=== PATIENT | male | born 1980 | race Caucasian/White ===

== ENCOUNTER 2018-07-06 09:58 | Inpatient (IN) | payer OTHER ==
[~2018-07-06] VITALS: Ht 175.3 cm; Wt 79.4 kg
[2018-07-06] MEDS ORDERED: RANI-551 PO (10:05)
[2018-07-06] MEDS ORDERED: METF-440 PO (10:05)
[2018-07-06 10:40] LABS: BASOPHILS % (AUTO) 0.7 % (0.0-2.0); EOSINOPHILS # (AUTO) 0.1 K/uL (0.0-0.7); EOSINOPHILS % (AUTO) 1.8 % (0.0-7.0); HEMATOCRIT 41.1 % (36.7-47.1); HEMOGLOBIN 14.7 g/dL (12.5-16.3); LYMPHOCYTES # (AUTO) 2.4 K/uL (20.0-40.0); LYMPHOCYTES % (AUTO) 38.7 % (20.5-51.5); MEAN CORPUSCULAR HEMOGLOBIN 30.4 uug (23.8-33.4); MEAN CORPUSCULAR HGB CONC 36 g/dL (32.5-36.3); MEAN CORPUSCULAR VOLUME 84.8 fL (73.0-96.2); MONOCYTES # (AUTO) 0.6 K/uL (2.0-10.0); MONOCYTES % (AUTO) 10.1 % (0.0-11.0); NEUTROPHILS % (AUTO) 48.7 % (38.5-71.5); PLATELET COUNT (AUTO) 282 K/uL (152-348); RED BLOOD CELL COUNT(AUTO) 4.85 MIL/uL (4.06-5.63); WHITE BLOOD COUNT (AUTO) 6.1 K/uL (3.6-10.2)
[2018-07-06 10:47] LABS: CREATININE 0.7 mg/dL (0.6-1.3); POTASSIUM 3.7 mmol/L (3.5-5.1)
[2018-07-06 11:01] LABS: *BILIRUBIN,URIN NEGATIVE (NEGATIVE); *BLOOD, URINE NEGATIVE (NEGATIVE); *CLARITY,URINE CLEAR (CLEAR); *COLOR,URINE LIGHT YELLOW (YELLOW); *KETONES,URINE 1+ (NEGATIVE); *PROTEIN,URINE NEGATIVE (NEGATIVE); *UROBILINOGEN,URINE 0.2 E.U./dl (NORMAL); LEUKOCYTE ESTERASE ,URINE NEGATIVE (NEGATIVE); NITRITE, URINE NEGATIVE (NEGATIVE); UGLUCOSE 2+ (NEGATIVE)
[2018-07-06 11:05] LABS: BILIRUBIN,DIRECT 0.1 mg/dL (0.0-0.2); BILIRUBIN,TOTAL 0.5 mg/dL (0.2-1.0); TOTAL PROTEIN, SERUM 7.5 g/dL (6.4-8.2)
[2018-07-06 11:13] LABS: BACTERIA,URINE NONE SEEN /HPF (NONE SEEN); RBC,URINE NONE SEEN /HPF (0-3); SQUAMOUS EPITHELIAL CELL,UR NONE SEEN /HPF (NONE SEEN); WBC,URINE NONE SEEN /HPF (0-3)
[2018-07-06] MEDS ORDERED: INSULIN REGULAR, HUMAN 300 UNIT/3 ML VIAL SQ ONE (11:30)
[2018-07-06] MEDS ORDERED: INSULIN REGULAR, HUMAN 300 UNIT/3 ML VIAL ONE (11:34)
--- NOTE | 2018-07-06 12:00 | NUR ---
[facility] [place]. PT EATING WITH GOOD APETITE
[2018-07-06] MEDS ORDERED: KETOROLAC TROMETHAMINE 30 MG INJ ONE (12:22)
[2018-07-06] MEDS ORDERED: KETOROLAC TROMETHAMINE 30 MG INJ IVP ONE (12:30)
--- NOTE | 2018-07-06 12:34 | NUR ---
pt transfered to floor in stable condition.
[2018-07-06 12:49] VITALS: BP 108/76
--- NOTE | 2018-07-06 13:36 | NUR ---
37 YEAR OLD MALE ADMITTED TO ROOM 225 FOR SYNCOPE ,PT IS AXOX4 .V/S ARE STABLE ,CALL LIGHT WITH IN REACH.MD CALLED FOR ADMISSION ORDERS
[2018-07-06] MEDS ORDERED: HYDROCODONE/APAP 5-325MG TABLET PO PRN (15:00)
[2018-07-06 15:50] VITALS: BP 107/74
[2018-07-06] MEDS ORDERED: ZOLPIDEM 5 MG TABLET PO PRN (16:45)
[2018-07-06] MEDS ORDERED: ONDANSETRON 4 MG/2 ML VIAL IV PRN (16:45)
[2018-07-06] MEDS ORDERED: ACETAMINOPHEN 325 MG TABLET PO PRN (16:45)
[2018-07-06] MEDS ORDERED: MAGNESIUM HYDROXIDE 30 ML LIQUID UDC PO PRN (16:45)
[2018-07-06] MEDS ORDERED: DEXTROSE 50% 50 ML DISP.SYRIN IV PRN (16:45)
[2018-07-06] MEDS: glipiZIDE 10 MG TABLET PO SCH (17:35)
[2018-07-06] MEDS: METFORMIN HCL 500 MG TABLET PO SCH (17:35)
[2018-07-06 20:00] VITALS: BP 118/79
[2018-07-06] MEDS: ALPRAZOLAM 0.5 MG TABLET PO PRN (20:00)
--- NOTE | 2018-07-06 20:00 | NUR ---
RECEIVED PATIENT AWAKE IN BED WITH AT BEDSIDE. PATIENT IS A/O X4. ON TELE SR. VS WNL. H/L INTACT AND PATENT. DENIES PAIN AT THIS TIME, CALL LIGHT IN REACH. ALL NEEDS ATTENDED. WILL CONTINUE TO MONITOR.
[2018-07-06] MEDS: BLOOD SUGAR DIAGNOSTIC 1 EACH STRIP VI SCH (20:05)
[2018-07-06] MEDS: INSULIN REGULAR, HUMAN 300 UNIT/3 ML VIAL SQ PRN (20:06)
[2018-07-06] MEDS: MORPHINE SULFATE 2 MG/1 ML DISP.SYRIN IV PRN (20:46)
[2018-07-06 23:27] VITALS: BP 114/78
[2018-07-07 04:00] VITALS: BP 123/73
[2018-07-07 05:57] LABS: BASOPHILS % (AUTO) 0.6 % (0.0-2.0); EOSINOPHILS # (AUTO) 0.1 K/uL (0.0-0.7); EOSINOPHILS % (AUTO) 2.1 % (0.0-7.0); HEMATOCRIT 37.5 % (36.7-47.1); HEMOGLOBIN 13.1 g/dL (12.5-16.3); LYMPHOCYTES # (AUTO) 2.4 K/uL (20.0-40.0); LYMPHOCYTES % (AUTO) 37.2 % (20.5-51.5); MEAN CORPUSCULAR HEMOGLOBIN 29.3 uug (23.8-33.4); MEAN CORPUSCULAR HGB CONC 35 g/dL (32.5-36.3); MEAN CORPUSCULAR VOLUME 83.8 fL (73.0-96.2); MONOCYTES # (AUTO) 0.5 K/uL (2.0-10.0); MONOCYTES % (AUTO) 8.7 % (0.0-11.0); NEUTROPHILS # (AUTO) 3.3 K/uL (1.8-8.9); NEUTROPHILS % (AUTO) 51.4 % (38.5-71.5); PLATELET COUNT (AUTO) 252 K/uL (152-348); RED BLOOD CELL COUNT(AUTO) 4.47 MIL/uL (4.06-5.63); WHITE BLOOD COUNT (AUTO) 6.3 K/uL (3.6-10.2)
--- NOTE | 2018-07-07 06:00 | NUR ---
PATIENT AWAKE IN BED. SLEPT WELL THROUGHOUT THE NIGHT. ON TELE SR. C/O PAIN IN LLE, PATIENT GIVEN MORPHINE 2MG IV PRN FOR PAIN PER BULB ASSEMBLER. WILL CONTINUE TO MONITOR. VS WNL. ALL NEEDS ATTENDED.
[2018-07-07 06:03] LABS: ALANINE AMINOTRANSFERASE 23 U/L (16-63); ALKALINE PHOSPHATASE 52 U/L (50-136); ASPARTATE AMINOTRANSFERASE 14 U/L (15-37); BILIRUBIN,TOTAL 0.5 mg/dL (0.2-1.0); CARBON DIOXIDE 25 mmol/L (21-32); CHLORIDE 104 mmol/L (98-107); CHOLESTEROL 152 mg/dL (<200); CREATININE 0.6 mg/dL (0.6-1.3); GLUCOSE 225 mg/dL (74-106); HDL CHOLESTEROL 34 mg/dL (40-60); MAGNESIUM 1.5 mg/dL (1.8-2.4); PHOSPHOROUS 4.5 mg/dL (2.5-4.9); POTASSIUM 3.7 mmol/L (3.5-5.1); TOTAL PROTEIN, SERUM 5.9 g/dL (6.4-8.2); TRIGLYCERIDES 124 MG/DL (30-150); UREA NITROGEN, BLOOD 15 mg/dL (7-18)
[2018-07-07] MEDS: MORPHINE SULFATE 2 MG/1 ML DISP.SYRIN IV PRN ×4 (06:03→19:12)
[2018-07-07 06:12] LABS: THYROID STIMULATING HORMONE 0.661 mIU/mL (0.358-3.740)
[2018-07-07] MEDS: BLOOD SUGAR DIAGNOSTIC 1 EACH STRIP VI SCH ×3 (06:35→17:12)
[2018-07-07] MEDS ORDERED: PANTOPRAZOLE SODIUM 40 MG TABLET.DR PO SCH (07:00)
--- NOTE | 2018-07-07 07:46 | NUR ---
Sleeping, not in distress. Tele SR
[2018-07-07] MEDS: METFORMIN HCL 500 MG TABLET PO SCH ×2 (08:36→17:12)
[2018-07-07] MEDS: glipiZIDE 10 MG TABLET PO SCH ×2 (08:36→17:12)
[2018-07-07] MEDS: INSULIN REGULAR, HUMAN 300 UNIT/3 ML VIAL SQ PRN ×3 (08:38→17:16)
[2018-07-07 11:11] VITALS: BP 126/83
[2018-07-07] MEDS: ALPRAZOLAM 0.5 MG TABLET PO PRN ×2 (11:20→19:12)
[2018-07-07 15:08] VITALS: BP 114/74
[2018-07-07] MEDS: MAGNESIUM SULFATE/D5W 100 ML IV SCH ×2 (15:44→17:06)
[2018-07-07] MEDS ORDERED: ALPR0.5T8 PO (18:28)
[2018-07-07] MEDS ORDERED: ATOR10TA PO (18:28)
[2018-07-07] MEDS ORDERED: METF-440 PO (18:28)
[2018-07-07] MEDS ORDERED: HYDR-3326 PO (18:28)
[2018-07-07] MEDS ORDERED: GLIP10TA11 PO (18:28)
--- NOTE | 2018-07-07 19:13 | NUR ---
With discharge order to home. Saline lock removed. Tele removed. Prescription and DC instruction given to patient, verbalized understanding. Endorsed for further care
[2018-07-07] MEDS ORDERED: ATORVASTATIN 10 MG TABLET PO SCH (21:00)
== END 2018-07-07 19:45 | disposition home or self-care (01) | DRG 48 ==
LOC: ER 09:58 → TELE 12:26
PROVIDERS: ADMIT Internal Medicine; ATTEND Internal Medicine
DX: G90.8 Other disorders of autonomic nervous system (principal); E11.40 Type 2 diabetes mellitus with diabetic neuropathy, unspecified; E11.65 Type 2 diabetes mellitus with hyperglycemia; E78.5 Hyperlipidemia, unspecified; E83.42 Hypomagnesemia; K21.9 Gastro-esophageal reflux disease without esophagitis; F41.9 Anxiety disorder, unspecified; F17.200 Nicotine dependence, unspecified, uncomplicated; Z79.84 Long term (current) use of oral hypoglycemic drugs; M79.7 Fibromyalgia; F41.0 Panic disorder [episodic paroxysmal anxiety]; M19.90 Unspecified osteoarthritis, unspecified site; Z83.3 Family history of diabetes mellitus
CPT/HCPCS: 36415; 70030-TC; 70450; 71045; 83605; 83735; 84100; 84443; 85025; 85730; 87040; 87086; 93005; A4663; G0378; J1815; J1885; J2270; J3475